=== PATIENT | female | born 1985 | race Caucasian/White ===

== ENCOUNTER 2019-01-02 07:45 | Day surgery (SDC) | payer BC ==
[2018-12-30 12:49] LABS: APPEARANCE,URINE SLIGHTLY-CLOUDY; BILIRUBIN,URINE NEGATIVE (NEGATIVE); COLOR,URINE YELLOW; GLUCOSE, URINE NEGATIVE (NEGATIVE); KETONES,URINE NEGATIVE (NEGATIVE); LEUKOCYTE ESTERASE,URINE TRACE (NEGATIVE); NITRITE,URINE NEGATIVE (NEGATIVE); PROTEIN,URINE NEGATIVE (NEGATIVE); URINE SPECIFIC GRAVITY 1.009; UROBILINOGEN,URINE NEGATIVE mg/dL (<2.0)
[2018-12-30 12:55] LABS: HEMATOCRIT 36.8 % (36.0-47.0); HEMOGLOBIN 12.4 g/dL (12.0-15.5); MEAN CORPUSCULAR HGB CONC 33.8 g/dL (32.0-36.0); MEAN CORPUSCULAR VOLUME 89 fl (80-97); PLATELET COUNT 282 10^3/uL (150-450); RED BLOOD COUNT 4.14 10^6/uL (3.72-5.28); RED CELL DISTRIBUTION WIDTH 12.3 % (11.5-14.0); WHITE BLOOD COUNT 5.3 10^3/uL (4.0-10.5)
[~2019-01-02 07:45] MED LIST: BUPIVACAINE HCL 0.25 % INJ/PF (2.5 MG/1 ML) 30 ML VIAL ONE; DEXAMETHASONE SOD PHOSPHATE INJ 4 MG/1 ML VIAL ONE; FENTANYL CITRATE INJ/PF 100 MCG/2 ML AMPUL ONE; LACTATED RINGERS 1000 ML IV PRN; LIDOCAINE 0.5% INJ-PF (5 MG/ML) 50 ML SDV SUBCUT PRN; LIDOCAINE 2% INJ-PF (20 MG/ML) 10 ML AMPUL ONE; MIDAZOLAM 2 MG/2 ML INJ ONE; ONDANSETRON HCL INJ/PF 4 MG/2 ML SDV ONE; PROPOFOL INJ 200 MG/20 ML VIAL IV ONE
[2019-01-02] MEDS ORDERED: MORPHINE SULFATE 10 MG/ML INJ IV PRN (09:49)
[2019-01-02] MEDS ORDERED: MEPERIDINE HCL/PF INJ 25 MG/1 ML DISP.SYRIN IV PRN (09:49)
[2019-01-02] MEDS ORDERED: FENTANYL CITRATE INJ/PF 100 MCG/2 ML AMPUL IV PRN ×3 (09:49)
[2019-01-02] MEDS ORDERED: PROMETHAZINE HCL INJ 25 MG/1 ML VIAL IV PRN ×2 (09:49)
[2019-01-02] MEDS ORDERED: DIPHENHYDRAMINE HCL 50 MG/ML VIAL IV PRN (09:49)
--- NOTE | 2019-01-02 10:38 | Operative Report ---
Operative Report DATE OF SURGERY: 01/02/19 PREOPERATIVE DIAGNOSIS: Persistent right Bartholin gland abscess POSTOPERATIVE DIAGNOSIS: Same OPERATION: Marsupialization of right Bartholin gland SURGEON: KEY WARD ANESTHESIA: Moderate Sedation TISSUE REMOVED OR ALTERED: None COMPLICATIONS: None ESTIMATED BLOOD LOSS: 25 ml INTRAOPERATIVE FINDINGS: Edematous right Bartholin gland with 0.5 mL of brown fluid from gland PROCEDURE: The patient was taken to the operating room where moderate, monitored sedation was administered. Patient was then prepared and draped in a normal sterile fashion in a dorsal lithotomy position. Immediate observation showed an edematous right Bartholin gland. This patient has had several right Bartholin gland abscesses. Labia were then sutured to the skin for a clear operating field. The right Bartholin gland was palpated through the vaginal mucosa. A 2 cm incision was made along the right side of the introitus. The skin was dissected down to the gland. Once the gland was incised, approximately 0.5 ml of brown, non-foul smelling fluid was extracted from the gland. Cultures were taken. The gland was then copiously irrigated with warm normal saline. The edges of the gland were sutured to the introital skin in an interrupted fashion. Hemostasis was noted. The area was then anesthetized with bupivacaine for lasting hemostasis. Sponge, instrument and needle counts were correct x2. Patient was taken to the recovery room in stable condition.
[2019-01-02] MEDS ORDERED: OXYCODONE-ACETAMINOPHEN 5-325 MG TABLET PO PRN ×2 (11:15)
[2019-01-02 11:47] VITALS: BP 97/68
[2019-01-02] MEDS ORDERED: ONDANSETRON HCL INJ/PF 4 MG/2 ML SDV IV ONE (12:00)
== END 2019-01-02 11:45 | disposition home or self-care (01) ==
LOC: OROUT 07:45
PROVIDERS: ATTEND Obstetrics & Gynecology
DX: N75.1 Abscess of Bartholin's gland (principal)
CPT/HCPCS: 36415; 87070; 87205; 85027; 81025; 87075; 81001; 56440; J2250; J1100; J3010; J2405; J2704; J3490; 940